=== PATIENT | female | born 1950 | race Caucasian/White ===

== ENCOUNTER 2019-04-10 10:54 | Emergency (ER) | payer OTHER, MEDICARE ==
[2019-04-10] MEDS ORDERED: Morphine 4 MG/ML Syringe IM ONE (11:08)
[2019-04-10] MEDS ORDERED: Ondansetron 4 MG Tab.DIS PO ONE (11:08)
--- NOTE | 2019-04-10 11:08 | EDM.PDOC ---
ED HPI GENERAL MEDICAL PROBLEM - General Chief Complaint: Chest Pain Stated Complaint: RIB INJURY Time Seen by Provider: 04/10/19 10:59 - History of Present Illness INITIAL COMMENTS - FREE TEXT/NARRATIVE: HISTORY AND PHYSICAL: History of present illness: Patient 60-year-old female presents status post right rib injury in which she states she was at work and the bike came down striking her right chest and falling subsequently hitting her right ribs into another box. She denies any other trauma or concern. Review of systems: As per history of present illness and below otherwise all systems reviewed and negative. Past medical history: As per history of present illness and as reviewed below otherwise noncontributory. Surgical history: As per history of present illness and as reviewed below otherwise noncontributory. Social history: No reported history of drug or alcohol abuse. Family history: As per history of present illness and as reviewed below otherwise noncontributory. Physical exam: HEENT: Atraumatic, normocephalic, pupils reactive, negative for conjunctival pallor or scleral icterus, mucous membranes moist, throat clear, neck supple, nontender, trachea midline. Lungs: Clear to auscultation, breath sounds equal bilaterally, chest tenderness in the right anterolateral axillary line over upper ribs with an ecchymotic area noted there is no crepitation.. Heart: S1S2, regular, negative for clicks, rubs, or JVD. Abdomen: Soft, nondistended, nontender. Negative for masses or hepatosplenomegaly. Negative for costovertebral tenderness. Pelvis: Stable nontender. Genitourinary: Deferred. Rectal: Deferred. Extremities: Atraumatic, negative for cords or calf pain. Neurovascular unremarkable. Neuro: Awake, alert, oriented. Cranial nerves II through XII unremarkable. Cerebellum unremarkable. Motor and sensory unremarkable throughout. Exam nonfocal. Diagnostics: X-ray right ribs with chest Therapeutics: Morphine sulfate 4 mg IM Zofran 4 mg by mouth Impression: #1 right rib injury Definitive disposition and diagnosis as appropriate pending reevaluation and review of above. - Related Data Allergies Allergy/AdvReac Type Severity Reaction Status Date / Time No Known Allergies Allergy Verified 04/10/19 11:08 Home Meds: Home Meds Acetaminophen 1 - 2 tab PO Q4H PRN 04/10/19 [History] Albuterol Sulfate [Albuterol Sulfate Hfa] 2 puff INH Q4H PRN 04/10/19 [History] Lisinopril 10 mg PO DAILY 04/10/19 [History] Mirtazapine 30 mg PO DAILY 04/10/19 [History] Naproxen Sodium [Aleve] 2 tab PO DAILY PRN 04/10/19 [History] Pantothenic Acid 500 mg PO DAILY 04/10/19 [History] diphenhydrAMINE [Benadryl] 25 mg PO DAILY 04/10/19 [History] ED ROS GENERAL - Review of Systems Review Of Systems: ROS reveals no pertinent complaints other than HPI. ED EXAM, GENERAL - Physical Exam Exam: See Below (dictation) Course - Vital Signs Last Recorded V/S: Last Vital Signs Temp 36.6 C 04/10/19 11:04 Pulse 95 04/10/19 11:04 Resp 20 04/10/19 11:04 BP 109/107 H 04/10/19 11:04 Pulse Ox 99 04/10/19 11:04 - Orders/Labs/Meds Meds: Medications Discontinued Medications Generic Name Dose Route Start Last Admin Trade Name Freq PRN Reason Stop Dose Admin Morphine Sulfate 4 mg 04/10/19 11:08 04/10/19 11:26 Morphine IM 04/10/19 11:09 Not Given ONETIME ONE Ondansetron HCl 4 mg 04/10/19 11:08 04/10/19 11:26 Zofran Odt PO 04/10/19 11:09 Not Given ONETIME ONE Departure - Departure Time of Disposition: 12:08 Disposition: Home, Self-Care 01 Condition: Good Clinical Impression: Rib fractures - Discharge Information Referrals: PCP,Unknown [Primary Care Provider] - Forms: ED Department Discharge Additional Instructions: The following information is given to patients seen in the emergency department who are being discharged to home. This information is to outline your options for follow-up care. We provide all patients seen in our emergency department with a follow-up referral. The need for follow-up, as well as the timing and circumstances, are variable depending upon the specifics of your emergency department visit. If you don't have a primary care physician on staff, we will provide you with a referral. We always advise you to contact your personal physician following an emergency department visit to inform them of the circumstance of the visit and for follow-up with them and/or the need for any referrals to a consulting specialist. The emergency department will also refer you to a specialist when appropriate. This referral assures that you have the opportunity for followup care with a specialist. All of these measure are taken in an effort to provide you with optimal care, which includes your followup. Under all circumstances we always encourage you to contact your private physician who remains a resource for coordinating your care. When calling for followup care, please make the office aware that this follow-up is from your recent emergency room visit. If for any reason you are refused follow-up, please contact the [facility] emergency department at and asked to speak to the emergency department charge nurse. Hydrocodone as prescribed since branches directed all for control released by occupational medicine/private medical doctor return as needed as discussed
--- NOTE | 2019-04-10 11:48 | CR ---
EXAMINATION: PA chest and right RIBS HISTORY: Pain. FINDINGS: The trachea is midline. The cardiomediastinal silhouette is within normal limits. No pulmonary infiltrates, effusions or pneumothorax. Left basilar atelectasis. Osseous structures appear osteopenic. There are a few nondisplaced right rib fractures noted. IMPRESSION: There are a few nondisplaced right lateral rib fractures noted without an underlying pneumothorax or pleural effusion.
== END 2019-04-10 12:50 | disposition home or self-care (01) ==
LOC: MW.ED 10:54
DX: S22.41XA Multiple fractures of ribs, right side, initial encounter for closed fracture (principal); Z79.899 Other long term (current) drug therapy; W22.8XXA Striking against or struck by other objects, initial encounter
CPT/HCPCS: 71101-26-RT; 71101-RT; 99283-25

== ENCOUNTER 2019-07-05 11:03 | Emergency (ER) | payer MEDICARE, OTHER ==
[2019-07-05] MEDS ORDERED: Sodium Chloride 0.9% 2.5 ML Syringe FLUSH PRN (11:04)
[2019-07-05] MEDS ORDERED: Sodium Chloride 0.9% 10 ML Syringe FLUSH PRN (11:04)
--- NOTE | 2019-07-05 11:16 | EDM.PDOC ---
ED HPI GENERAL MEDICAL PROBLEM - General Chief Complaint: Chest Pain Stated Complaint: CHEST PAIN, NUMBNESS IN LEGS Time Seen by Provider: 07/05/19 11:05 Source of Information: Reports: Patient History Limitations: Reports: No Limitations - History of Present Illness INITIAL COMMENTS - FREE TEXT/NARRATIVE: HISTORY AND PHYSICAL: History of present illness: Patient is a 69-year-old female presents to the ED today with concern of mid sternal chest pain, feeling short of breath, tingling in both hands and feet, and one episode of drooling out of the left side of her mouth just prior to arrival to the ED (started around 830am). Patient states she was at work when the symptoms came on suddenly when she was chopping fruit at work. Patient states while in the ED, the only sensation she still has his the midsternal chest pain (5/10) along with the feeling short of breath which she describes as feeling like she has pressure on her chest so cannot take a deep breath in. Patient states she has a history of hypertension but denies any other health history. Patient states she has not taken anything today for her symptoms. Patient denies fever, chills or cough. Denies headache, neck stiff ness, change in vision, syncope, or near syncope. Denies nausea, vomiting, abdominal pain, diarrhea, constipation, or dysuria. Has not noted any blood in urine or stool. Patient has been eating and drinking appropriately. Review of systems: As per history of present illness and below otherwise all systems reviewed and negative. Past medical history: As per history of present illness and as reviewed below otherwise noncontributory. Surgical history: As per history of present illness and as reviewed below otherwise noncontributory. Social history: See social history for further information Family history: As per history of present illness and as reviewed below otherwise noncontributory. Physical exam: General: Patient is alert, oriented, and in no acute distress. Patient sitting comfortably on exam table but does appear mildly anxious. HEENT: Atraumatic, normocephalic, pupils equal and reactive bilaterally, negative for conjunctival pallor or scleral icterus, mucous membranes moist, TMs normal bilaterally, throat clear, neck supple, nontender, trachea midline. No drooling or trismus noted. No meningeal signs. No hot potato voice noted. Lungs: Clear to auscultation, breath sounds equal bilaterally, chest nontender. Heart: S1S2, regular rate and rhythm without overt murmur Abdomen: Soft, nondistended, nontender. Negative for masses or hepatosplenomegaly. Negative for costovertebral tenderness. Pelvis: Stable nontender. Genitourinary: Deferred. Rectal: Deferred. Skin: Intact, warm, dry. No lesions or rashes noted. Extremities: Atraumatic, negative for cords or calf pain. Neurovascular unremarkable. Neuro: Awake, alert, oriented. Cranial nerves II through XII unremarkable. Cerebellum unremarkable. Motor and sensory unremarkable throughout. Exam nonfocal. Notes: Stroke Code was called upon arrival to the ED. Last known time well 830am. NIH score 0. GCS score 15. Patient BP now 148/[address] without therapeutics (before nitro given). Chest pain resolved throughout course in ED. Offered admission for observation but patient declines; discussed the risks versus benefits of discharge, patient expresses understanding and declined admission stating she'll return if she feels necessary. Voices understanding and is agreeable to plan of care. Denies any further questions or concerns at this time. Diagnostics: CBC, CMP, UA, EKG, troponin, chest x-ray one view, head CT, TSH, PT/INR, urine culture Therapeutics: ASA, Nitro, NS Prescription: None Impression: Chest pain, resolved Extremity paresthesia, resolved Plan: 1. You can alternate ibuprofen and Tylenol as directed for pain and discomfort. 2. Follow-up with a primary care provider as discussed. Return to the ED as needed and as discussed. Definitive disposition and diagnosis as appropriate pending reevaluation and review of above. chest Pain Score (Numeric/FACES): 7 - Related Data Allergies Allergy/AdvReac Type Severity Reaction Status Date / Time No Known Allergies Allergy Verified 04/10/19 11:08 Home Meds: Home Meds Acetaminophen 1 - 2 tab PO Q4H PRN 04/10/19 [History] Albuterol Sulfate [Albuterol Sulfate Hfa] 2 puff INH Q4H PRN 04/10/19 [History] Lisinopril 10 mg PO DAILY 04/10/19 [History] Mirtazapine 30 mg PO DAILY 04/10/19 [History] Naproxen Sodium [Aleve] 2 tab PO DAILY PRN 04/10/19 [History] Pantothenic Acid 500 mg PO DAILY 04/10/19 [History] diphenhydrAMINE [Benadryl] 25 mg PO DAILY 04/10/19 [History] Fluticasone Furoate [Arnuity Ellipta] 100 mcg PO BID 07/05/19 [History] Orphenadrine [Norflex] 100 mg PO BID PRN 07/05/19 [History] Past Medical History Cardiovascular History: Reports: Hypertension Respiratory History: Reports: Sleep Apnea [employer]ING [employer]ENT History: Reports: - Infectious Disease History Infectious Disease History: Reports: Measles Social & Family History - Family History Family Medical History: Noncontributory ED ROS GENERAL - Review of Systems Review Of Systems: ROS reveals no pertinent complaints other than HPI. ED EXAM, GENERAL - Physical Exam Exam: See Below (see dictation) Course - Vital Signs Last Recorded V/S: Last Vital Signs Temp 36.5 C 07/05/19 11:12 Pulse 79 07/05/19 12:38 Resp 14 07/05/19 12:38 BP 120/75 07/05/19 12:38 Pulse Ox 98 07/05/19 12:38 - Orders/Labs/Meds Orders: Active Orders 24 hr Category Date Time Status EKG Documentation Completion [RC] STAT Care 07/05/19 11:04 Active CULTURE URINE [RM] Stat Lab 07/05/19 12:10 Received UA W/MICROSCOPIC [URIN] Stat Lab 07/05/19 12:10 Results Nitroglycerin [Nitrostat] Med 07/05/19 11:37 Active 0.4 mg SL Q5M PRN Sodium Chloride 0.9% [Normal Saline] 1,000 ml Med 07/05/19 11:52 Active IV .Bolus Sodium Chloride 0.9% [Saline Flush] Med 07/05/19 11:04 Active 10 ml FLUSH ASDIRECTED PRN Sodium Chloride 0.9% [Saline Flush] Med 07/05/19 11:04 Active 2.5 ml FLUSH ASDIRECTED PRN Saline Lock Insert [OM.PC] Stat Oth 07/05/19 11:04 Ordered Medication Orders Sodium Chloride (Normal Saline) 1,000 mls @ 999 mls/hr IV .Bolus ONE Stop: 07/05/19 12:52 Last Admin: 07/05/19 11:53 Dose: 999 mls/hr Nitroglycerin (Nitrostat) 0.4 mg SL Q5M PRN PRN Reason: Chest Pain Last Admin: 07/05/19 11:55 Dose: 0.4 mg Sodium Chloride (Saline Flush) 10 ml FLUSH ASDIRECTED PRN PRN Reason: Keep Vein Open Sodium Chloride (Saline Flush) 2.5 ml FLUSH ASDIRECTED PRN PRN Reason: Keep Vein Open Labs: Laboratory Tests 07/05/19 07/05/19 07/05/19 Range/Units 11:10 11:10 11:10 WBC 8.11 (4.0-11.0) K/uL RBC 4.52 (4.30-5.90) M/uL Hgb 14.3 (12.0-16.0) g/dL Hct 42.4 (36.0-46.0) % MCV 93.8 (80.0-98.0) fL MCH 31.6 (27.0-32.0) pg MCHC 33.7 (31.0-37.0) g/dL RDW Std Deviation 45.7 (28.0-62.0) fl RDW Coeff of Alexa 13 (11.0-15.0) % Plt Count 266 (150-400) K/uL MPV 9.40 (7.40-12.00) fL Neut % (Auto) 55.3 (48.0-80.0) % Lymph % (Auto) 31.9 (16.0-40.0) % [place] % (Auto) 10.1 (0.0-15.0) % Eos % (Auto) 2.5 (0.0-7.0) % Baso % (Auto) 0.2 (0.0-1.5) % Neut # (Auto) 4.5 (1.4-5.7) K/uL Lymph # (Auto) 2.6 H (0.6-2.4) K/uL [place] # (Auto) 0.8 (0.0-0.8) K/uL Eos # (Auto) 0.2 (0.0-0.7) K/uL Baso # (Auto) 0.0 (0.0-0.1) K/uL Nucleated RBC % 0.0 /100WBC Nucleated RBCs # 0 K/uL INR 1.00 Sodium 138 (136-145) mmol/L Potassium 4.3 (3.5-5.1) mmol/L Chloride 104 (98-107) mmol/L Carbon Dioxide 22.4 (21.0-32.0) mmol/L BUN 27 H (7.0-18.0) mg/dL Creatinine 1.2 H (0.6-1.0) mg/dL Est Cr Clr Drug Dosing 46.24 mL/min Estimated GFR (MDRD) 44.5 ml/min Glucose 107 H (74-106) mg/dL Calcium 9.6 (8.5-10.1) mg/dL Total Bilirubin 0.3 (0.2-1.0) mg/dL AST 23 (15-37) IU/L ALT 38 (14-63) IU/L Alkaline Phosphatase 83 (46-116) U/L Troponin I < 0.050 (0.000-0.056) ng/mL Total Protein 7.6 (6.4-8.2) g/dL Albumin 4.4 (3.4-5.0) g/dL Globulin 3.2 (2.6-4.0) g/dL Albumin/Globulin Ratio 1.4 (0.9-1.6) TSH 3rd Generation 2.53 (0.36-3.74) uIU/mL Urine Color Urine Appearance Urine pH (5.0-8.0) Ur Specific [place] (1.001-1.035) Urine Protein (NEGATIVE) mg/dL Urine Glucose (UA) (NEGATIVE) mg/dL Urine Ketones (NEGATIVE) mg/dL Urine Occult Blood (NEGATIVE) Urine Nitrite (NEGATIVE) Urine Bilirubin (NEGATIVE) Urine Urobilinogen (<2.0) EU/dL Ur Leukocyte Esterase (NEGATIVE) 07/05/19 Range/Units 12:10 WBC (4.0-11.0) K/uL RBC (4.30-5.90) M/uL Hgb (12.0-16.0) g/dL Hct (36.0-46.0) % MCV (80.0-98.0) fL MCH (27.0-32.0) pg MCHC (31.0-37.0) g/dL RDW Std Deviation (28.0-62.0) fl RDW Coeff of Alexa (11.0-15.0) % Plt Count (150-400) K/uL MPV (7.40-12.00) fL Neut % (Auto) (48.0-80.0) % Lymph % (Auto) (16.0-40.0) % [place] % (Auto) (0.0-15.0) % Eos % (Auto) (0.0-7.0) % Baso % (Auto) (0.0-1.5) % Neut # (Auto) (1.4-5.7) K/uL Lymph # (Auto) (0.6-2.4) K/uL [place] # (Auto) (0.0-0.8) K/uL Eos # (Auto) (0.0-0.7) K/uL Baso # (Auto) (0.0-0.1) K/uL Nucleated RBC % /100WBC Nucleated RBCs # K/uL INR Sodium (136-145) mmol/L Potassium (3.5-5.1) mmol/L Chloride (98-107) mmol/L Carbon Dioxide (21.0-32.0) mmol/L BUN (7.0-18.0) mg/dL Creatinine (0.6-1.0) mg/dL Est Cr Clr Drug Dosing mL/min Estimated GFR (MDRD) ml/min Glucose (74-106) mg/dL Calcium (8.5-10.1) mg/dL Total Bilirubin (0.2-1.0) mg/dL AST (15-37) IU/L ALT (14-63) IU/L Alkaline Phosphatase (46-116) U/L Troponin I (0.000-0.056) ng/mL Total Protein (6.4-8.2) g/dL Albumin (3.4-5.0) g/dL Globulin (2.6-4.0) g/dL Albumin/Globulin Ratio (0.9-1.6) TSH 3rd Generation (0.36-3.74) uIU/mL Urine Color YELLOW Urine Appearance CLEAR Urine pH 5.5 (5.0-8.0) Ur Specific [place] 1.025 (1.001-1.035) Urine Protein NEGATIVE (NEGATIVE) mg/dL Urine Glucose (UA) NEGATIVE (NEGATIVE) mg/dL Urine Ketones NEGATIVE (NEGATIVE) mg/dL Urine Occult Blood NEGATIVE (NEGATIVE) Urine Nitrite NEGATIVE (NEGATIVE) Urine Bilirubin NEGATIVE (NEGATIVE) Urine Urobilinogen 0.2 (<2.0) EU/dL Ur Leukocyte Esterase TRACE H (NEGATIVE) Meds: Medications Generic Name Dose Route Start Last Admin Trade Name Freq PRN Reason Stop Dose Admin Sodium Chloride 1,000 mls @ 999 mls/hr 07/05/19 11:52 07/05/19 11:53 Normal Saline IV 07/05/19 12:52 999 mls/hr .Bolus ONE Administration Nitroglycerin 0.4 mg 07/05/19 11:37 07/05/19 11:55 Nitrostat SL 0.4 mg Q5M PRN Administration Chest Pain Sodium Chloride 10 ml 07/05/19 11:04 Saline Flush FLUSH ASDIRECTED PRN Keep Vein Open Sodium Chloride 2.5 ml 07/05/19 11:04 Saline Flush FLUSH ASDIRECTED PRN Keep Vein Open Discontinued Medications Generic Name Dose Route Start Last Admin Trade Name Freq PRN Reason Stop Dose Admin Aspirin 324 mg 07/05/19 11:36 07/05/19 11:51 Aspirin PO 07/05/19 11:37 324 mg ONETIME ONE Administration Departure - Departure Time of Disposition: 12:51 Disposition: Home, Self-Care 01 Clinical Impression: Paresthesia of lower extremity, Paresthesia of upper extremity Chest pain Qualifiers: Chest pain type: unspecified Qualified Code(s): R07.9 - Chest pain, unspecified - Discharge Information Referrals: PCP,Unknown [Primary Care Provider] - Forms: ED Department Discharge Additional Instructions: The following information is given to patients seen in the emergency department who are being discharged to home. This information is to outline your options for follow-up care. We provide all patients seen in our emergency department with a follow-up referral. The need for follow-up, as well as the timing and circumstances, are variable depending upon the specifics of your emergency department visit. If you don't have a primary care physician on staff, we will provide you with a referral. We always advise you to contact your personal physician following an emergency department visit to inform them of the circumstance of the visit and for follow-up with them and/or the need for any referrals to a consulting specialist. The emergency department will also refer you to a specialist when appropriate. This referral assures that you have the opportunity for follow-up care with a specialist. All of these measure are taken in an effort to provide you with optimal care, which includes your follow-up. Under all circumstances we always encourage you to contact your private physician who remains a resource for coordinating your care. When calling for follow-up care, please make the office aware that this follow-up is from your recent emergency room visit. If for any reason you are refused follow-up, please contact the [facility] Emergency Department at and asked to speak to the emergency department charge nurse. [facility] Primary Care [address] [place] [address] [facility] [address] [place] [id number] 1. You can alternate ibuprofen and Tylenol as directed for pain and discomfort. 2. Follow-up with a primary care provider as discussed. Return to the ED as needed and as discussed. - My Orders Last 24 Hours: My Active Orders 07/05/19 11:37 Nitroglycerin [Nitrostat] 0.4 mg SL Q5M PRN 07/05/19 11:52 Sodium Chloride 0.9% [Normal Saline] 1,000 ml IV .Bolus - Assessment/Plan Last 24 Hours: My Active Orders 07/05/19 11:37 Nitroglycerin [Nitrostat] 0.4 mg SL Q5M PRN 07/05/19 11:52 Sodium Chloride 0.9% [Normal Saline] 1,000 ml IV .Bolus
--- NOTE | 2019-07-05 11:33 | CT ---
INDICATION: Blurry vision. TECHNIQUE: CT of the head without contrast. Coronal and sagittal reformats are included. COMPARISON: None. FINDINGS: No acute intracranial hemorrhage or CT evidence of acute infarct. No mass effect or midline shift. Normal cerebral volume. No hydrocephalus or extra-axial collections. White matter within normal limits for age. No acute osseous findings. Mastoid bone and paranasal sinuses are clear. Normal soft tissues. IMPRESSION: 1. No acute intracranial abnormalities. Please note that all CT scans at this facility use dose modulation, iterative reconstruction, and/or weight-based dosing when appropriate to reduce radiation dose to as low as reasonably achievable. Dictated by Tres Mahoney MD @ Jul 05 2019 11:29AM Signed by Dr. Tres Mahoney @ Jul 05 2019 11:32AM
[2019-07-05] MEDS ORDERED: Aspirin 81 MG Tab.Chew PO ONE (11:36)
[2019-07-05] MEDS ORDERED: Nitroglycerin 0.4 MG Tab.SL SL PRN (11:37)
[2019-07-05 11:52] LABS: CHLORIDE,CL 104 mmol/L (98-107); SODIUM,NA 138 mmol/L (136-145)
[2019-07-05] MEDS ORDERED: Sodium Chloride 0.9% 1,000 ML IV ONE (11:52)
--- NOTE | 2019-07-05 12:14 | CR ---
INDICATION: Chest pain, shortness breath. COMPARISON: PA chest dated 06/20/2019 TECHNIQUE: Portable AP erect chest performed at 11:31 a.m. FINDINGS: The lungs are clear. There is no evidence of pneumothorax. The heart, mediastinum and pulmonary vessels are of normal size. There is no evidence of pleural fluid. IMPRESSION: Negative chest. Dictated by Sanjeev Mao MD @ Jul 05 2019 12:10PM Signed by Dr. Sanjeev Mao @ Jul 05 2019 12:13PM
== END 2019-07-05 13:05 | disposition home or self-care (01) ==
LOC: MW.ED 11:03
DX: R20.2 Paresthesia of skin (principal); R07.2 Precordial pain; I10 Essential (primary) hypertension; Z79.899 Other long term (current) drug therapy
CPT/HCPCS: 36415; 70450; 71045; 80053; 81001; 84443; 84484; 85025; 85610; 87086; 93005; 96360; 99285; A9270; J7040

== ENCOUNTER 2019-08-10 08:37 | Observation (INO) | payer MEDICARE ==
[2019-08-10] MEDS ORDERED: Sodium Chloride 0.9% 10 ML Syringe FLUSH PRN (08:47)
[2019-08-10] MEDS ORDERED: Sodium Chloride 0.9% 1,000 ML IV ONE ×2 (08:47→10:58)
[2019-08-10] MEDS ORDERED: Sodium Chloride 0.9% 2.5 ML Syringe FLUSH PRN (08:47)
[2019-08-10 09:19] LABS: BLOOD UREA NITROGEN,BUN 21 mg/dL (7.0-18.0); CARBON DIOXIDE,CO2 24.9 mmol/L (21.0-32.0); CHLORIDE,CL 104 mmol/L (98-107); GLUCOSE RANDOM 153 mg/dL (74-106); POTASSIUM,K 4.1 mmol/L (3.5-5.1); SODIUM,NA 140 mmol/L (136-145)
--- NOTE | 2019-08-10 09:55 | EDM.PDOC ---
ED HPI GENERAL MEDICAL PROBLEM - General Chief Complaint: Chest Pain Stated Complaint: SOB Time Seen by Provider: 08/10/19 08:41 Source of Information: Reports: Patient History Limitations: Reports: No Limitations - History of Present Illness INITIAL COMMENTS - FREE TEXT/NARRATIVE: History of present illness: []Patient awoke and ate her bran flakes for breakfast after taking isosorbide which is her only second dose of this medication and shortly had profuse nonbloody diarrhea. She subsequently had 4 more episodes of diarrhea after deciding while driving to work to just drive to Dr. Alarcon's office and be evaluated. Once at Dr. Alarcon's office she was sent to the emergency room. Review of systems: As per history of present illness and below otherwise all systems reviewed and negative. Past medical history: As per history of present illness and as reviewed below otherwise noncontributory. Surgical history: As per history of present illness and as reviewed below otherwise noncontributory. Social history: No reported history of drug or alcohol abuse. Family history: As per history of present illness and as reviewed below otherwise noncontributory. Physical exam: General: Well developed, well nourished in NAD HEENT: Atraumatic, normocephalic, pupils reactive, negative for conjunctival pallor or scleral icterus, mucous membranes moist, throat clear, neck supple, nontender, trachea midline. Lungs: Clear to auscultation, breath sounds equal bilaterally, chest nontender. Heart: S1S2, regular, negative for clicks, rubs, or JVD. No peripheral edema Abdomen: NABS, Soft, nondistended, nontender, no rebound or guarding. Negative for masses or hepatosplenomegaly. Negative for costovertebral tenderness. Pelvis: Stable nontender. Genitourinary: Deferred. Rectal: Deferred. Extremities: Atraumatic, negative for cords or calf pain. Neurovascular unremarkable. Neuro: Awake, alert, oriented. Cranial nerves II through XII unremarkable. Cerebellum unremarkable. Motor and sensory unremarkable throughout. Exam nonfocal. Skin:warm and dry Diagnostics: Chest x-ray, CBC, chemistry, troponin, BNP, UA, stool cultures and C. difficile Therapeutics: IV hydration, Zofran ED Course: Stable Impression: Diarrhea, chest pain Prescriptions: None Plan: Admit for IV hydration and further workup Definitive disposition and diagnosis as appropriate pending reevaluation and review of above. Mid-Sternal Chest Pain Score (Numeric/FACES): 8 - Related Data Allergies Allergy/AdvReac Type Severity Reaction Status Date / Time No Known Allergies Allergy Verified 08/10/19 08:44 Home Meds: Home Meds Acetaminophen 1 - 2 tab PO Q4H PRN 04/10/19 [History] Albuterol Sulfate [Albuterol Sulfate Hfa] 2 puff INH Q4H PRN 04/10/19 [History] Lisinopril 10 mg PO DAILY 04/10/19 [History] Mirtazapine 30 mg PO DAILY 04/10/19 [History] Naproxen Sodium [Aleve] 2 tab PO DAILY PRN 04/10/19 [History] Pantothenic Acid 500 mg PO DAILY 04/10/19 [History] diphenhydrAMINE [Benadryl] 25 mg PO DAILY 04/10/19 [History] Fluticasone Furoate [Arnuity Ellipta] 100 mcg PO BID 07/05/19 [History] Orphenadrine [Norflex] 100 mg PO BID PRN 07/05/19 [History] Past Medical History Cardiovascular History: Reports: Angina, Hypertension Respiratory History: Reports: Sleep Apnea [employer] History: Reports: - Infectious Disease History Infectious Disease History: Reports: Chicken Pox, Measles, Mumps Social & Family History - Family History Family Medical History: Noncontributory - Tobacco Use Smoking Status *Q: Never Smoker - Caffeine Use Caffeine Use: Reports: Coffee - Recreational Drug Use Recreational Drug Use: No ED ROS GENERAL - Review of Systems Review Of Systems: See Below ED EXAM, GENERAL - Physical Exam Exam: See Below Course - Vital Signs Last Recorded V/S: Last Vital Signs Temp 97.5 F 08/10/19 08:40 Pulse 67 08/10/19 10:58 Resp 18 08/10/19 10:58 BP 121/70 08/10/19 11:00 Pulse Ox 96 08/10/19 10:58 - Orders/Labs/Meds Orders: Active Orders 24 hr Category Date Time Status Cardiac Monitoring [RC] . DIRECTED Care 08/10/19 08:47 Active EKG Documentation Completion [RC] STAT Care 08/10/19 08:47 Active CULTURE STOOL + CAMPY+SHIGATOX [RM] Stat Lab 08/10/19 08:47 Results Sodium Chloride 0.9% [Saline Flush] Med 08/10/19 08:47 Active 10 ml FLUSH ASDIRECTED PRN Sodium Chloride 0.9% [Saline Flush] Med 08/10/19 08:47 Active 2.5 ml FLUSH ASDIRECTED PRN Isolation [COMM] Stat [facility] 08/10/19 09:04 Ordered Saline Lock Insert [OM.PC] Stat [facility] 08/10/19 08:46 Ordered Medication Orders Loperamide HCl (Imodium) 0 mg PO ASDIRECTED PRN PRN Reason: Diarrhea Sodium Chloride (Saline Flush) 10 ml FLUSH ASDIRECTED PRN PRN Reason: Keep Vein Open Sodium Chloride (Saline Flush) 2.5 ml FLUSH ASDIRECTED PRN PRN Reason: Keep Vein Open Labs: Laboratory Tests 08/10/19 08/10/19 08/10/19 Range/Units 08:39 08:39 08:39 WBC 5.51 (4.0-11.0) K/uL RBC 4.42 (4.30-5.90) M/uL Hgb 13.7 (12.0-16.0) g/dL Hct 41.5 (36.0-46.0) % MCV 93.9 (80.0-98.0) fL MCH 31.0 (27.0-32.0) pg MCHC 33.0 (31.0-37.0) g/dL RDW Std Deviation 44.9 (28.0-62.0) fl RDW Coeff of Alexa 13 (11.0-15.0) % Plt Count 248 (150-400) K/uL MPV 9.40 (7.40-12.00) fL Neut % (Auto) 51.3 (48.0-80.0) % Lymph % (Auto) 37.2 (16.0-40.0) % Power % (Auto) 9.3 (0.0-15.0) % Eos % (Auto) 1.8 (0.0-7.0) % Baso % (Auto) 0.4 (0.0-1.5) % Neut # (Auto) 2.8 (1.4-5.7) K/uL Lymph # (Auto) 2.1 (0.6-2.4) K/uL Power # (Auto) 0.5 (0.0-0.8) K/uL Eos # (Auto) 0.1 (0.0-0.7) K/uL Baso # (Auto) 0.0 (0.0-0.1) K/uL Nucleated RBC % 0.0 /100WBC Nucleated RBCs # 0 K/uL Sodium 140 (136-145) mmol/L Potassium 4.1 (3.5-5.1) mmol/L Chloride 104 (98-107) mmol/L Carbon Dioxide 24.9 (21.0-32.0) mmol/L BUN 21 H (7.0-18.0) mg/dL Creatinine 0.9 (0.6-1.0) mg/dL Est Cr Clr Drug Dosing 61.65 mL/min Estimated GFR (MDRD) > 60.0 ml/min Glucose 153 H (74-106) mg/dL Calcium 9.8 (8.5-10.1) mg/dL Total Bilirubin 0.3 (0.2-1.0) mg/dL AST 22 (15-37) IU/L ALT 41 (14-63) IU/L Alkaline Phosphatase 75 (46-116) U/L Troponin I < 0.050 (0.000-0.056) ng/mL B-Natriuretic Peptide 15 (<100) PG/ML Total Protein 6.9 (6.4-8.2) g/dL Albumin 3.8 (3.4-5.0) g/dL Globulin 3.1 (2.6-4.0) g/dL Albumin/Globulin Ratio 1.2 (0.9-1.6) Meds: Medications Generic Name Dose Route Start Last Admin Trade Name Freq PRN Reason Stop Dose Admin Loperamide HCl 0 mg 08/10/19 11:29 Imodium PO ASDIRECTED PRN Diarrhea Sodium Chloride 10 ml 08/10/19 08:47 Saline Flush FLUSH ASDIRECTED PRN Keep Vein Open Sodium Chloride 2.5 ml 08/10/19 08:47 Saline Flush FLUSH ASDIRECTED PRN Keep Vein Open Discontinued Medications Generic Name Dose Route Start Last Admin Trade Name Freq PRN Reason Stop Dose Admin Sodium Chloride 1,000 mls @ 999 mls/hr 08/10/19 08:47 08/10/19 09:05 Normal Saline IV 08/10/19 09:47 999 mls/hr .Bolus ONE Administration Sodium Chloride 1,000 mls @ 999 mls/hr 08/10/19 10:58 08/10/19 10:59 Normal Saline IV 08/10/19 11:58 999 mls/hr .BOLUS ONE Administration Nitroglycerin 0.4 mg 08/10/19 10:03 Nitrostat SL Q5M PRN Chest Pain Departure - Departure Time of Disposition: 12:02 Disposition: Refer to Observation Condition: Good Clinical Impression: Diarrhea Chest pain Qualifiers: Chest pain type: unspecified Qualified Code(s): R07.9 - Chest pain, unspecified - My Orders Last 24 Hours: My Active Orders 08/10/19 08:46 Saline Lock Insert [OM.PC] Stat 08/10/19 08:47 Cardiac Monitoring [RC] . DIRECTED EKG Documentation Completion [RC] STAT CULTURE STOOL + CAMPY+SHIGATOX [RM] Stat Sodium Chloride 0.9% [Saline Flush] 10 ml FLUSH ASDIRECTED PRN Sodium Chloride 0.9% [Saline Flush] 2.5 ml FLUSH ASDIRECTED PRN 08/10/19 09:04 Isolation [COMM] Stat - Assessment/Plan Last 24 Hours: My Active Orders 08/10/19 08:46 Saline Lock Insert [OM.PC] Stat 08/10/19 08:47 Cardiac Monitoring [RC] . DIRECTED EKG Documentation Completion [RC] STAT CULTURE STOOL + CAMPY+SHIGATOX [RM] Stat Sodium Chloride 0.9% [Saline Flush] 10 ml FLUSH ASDIRECTED PRN Sodium Chloride 0.9% [Saline Flush] 2.5 ml FLUSH ASDIRECTED PRN 08/10/19 09:04 Isolation [COMM] Stat
--- NOTE | 2019-08-10 09:56 | CR ---
INDICATION: Pain. TECHNIQUE: AP portable chest x-ray. Comparison Chest x-ray 07/05/2019. FINDINGS: Heart is upper limits of normal. Mild elevation eventration right hemidiaphragm. Postsurgical changes right shoulder stable. No focal infiltrate or consolidation in either lung. Small nodular opacity in the right lower lung stable and indeterminate. Comparison with older chest x-rays would be helpful in determining the if this is stable or not. Otherwise follow-up chest imaging could reassess. Remainder negative. Dictated by Edenilson Barth MD @ Aug 10 2019 9:54AM Signed by Dr. Edenilson Barth @ Aug 10 2019 9:55AM
[2019-08-10] MEDS ORDERED: Nitroglycerin 0.4 MG Tab.SL SL PRN (10:03)
[2019-08-10] MEDS ORDERED: Loperamide 2 MG Cap PO PRN (11:29)
--- NOTE | 2019-08-10 11:31 | PCM.HP.2 ---
H&P History of Present Illness - General Date of Service: 08/10/19 Admit Problem/Dx: Admission Diagnosis/Problem Admission Diagnosis/Problem Chest pain Source of Information: Patient History Limitations: Reports: No Limitations - History of Present Illness Initial Comments - Free Text/Narative: This 69 year old female with pmh of HTN presented to ED today with complaints of chest pressure, epigastric pain and diarrhea. She reports she was eating breakfast this morning and took her newly prescribed Isosorbide, day 2, and then suddenly had the urge to have a BM. She reports explosive diarrhea. This finished and she was finishing getting ready for work and had another diarrhea then had another 2 stools. She felt she was done. She then started in to work and was driving and started feeling diaphoretic, with chest pressure. She felt she was unable to take a deep breath. She turned around and came into Dr Alarcon' s clinic where she was directed to the ED. Prior to arriving in the ED, she had another 3 stools. Since arriving to the ED, she has had one stool. She continues to have some mild chest pressure. very vague, doesn't worsen with anything. Has history of some chest pressure with ambulation, this is why Isosorbide was started. ECHO obtained in the clinic a few weeks ago. She denies fevers, chills or acute illness recently. She reports very vague fatigue symptoms and leg cramps that have been bugging her since approximately March. 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 She denies tobacco use, no alcohol use and no recreational drug use. In the ED Labwork WNL. troponin negative. EKG SR with no acute ischemia noted. Stools negative for Cdiff and negative for campylobacter. CXR negative, small nodule noted in R lung base. VS stable. She will be admitted for chest pain rule out [place] and diarrhea. PCP, Dr Alarcon Mid-Sternal Chest Pain Score (Numeric/FACES): 8 - Related Data Allergies/Adverse Reactions: Allergies Allergy/AdvReac Type Severity Reaction Status Date / Time No Known Allergies Allergy Verified 08/10/19 08:44 Home Medications: Home Meds Acetaminophen 1 - 2 tab PO Q4H PRN 04/10/19 [History] Albuterol Sulfate [Albuterol Sulfate Hfa] 2 puff INH Q4H PRN 04/10/19 [History] Lisinopril 10 mg PO DAILY 04/10/19 [History] Mirtazapine 30 mg PO DAILY 04/10/19 [History] Naproxen Sodium [Aleve] 2 tab PO DAILY PRN 04/10/19 [History] Pantothenic Acid 500 mg PO DAILY 04/10/19 [History] diphenhydrAMINE [Benadryl] 25 mg PO DAILY 04/10/19 [History] Fluticasone Furoate [Arnuity Ellipta] 100 mcg PO BID 07/05/19 [History] Orphenadrine [Norflex] 100 mg PO BID PRN 07/05/19 [History] Past Medical History Cardiovascular History: Reports: Angina, Hypertension. Denies: Afib, Blood Clots/VTE/DVT Respiratory History: Reports: Sleep Apnea (uses bipap) Gastrointestinal History: Reports: None Genitourinary History: Reports: None. 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 Denies: CVA, TIA Psychiatric History: Reports: None Endocrine/Metabolic History: Reports: Obesity/BMI 30+. Denies: Diabetes, Type II, Hypothyroidism - Infectious Disease History Infectious Disease History: Reports: Chicken Pox, Measles, Mumps - Past Surgical History GI Surgical History: Reports: Other (See Below) (patric bragg) Female Surgical History: Reports: Hysterectomy, Tubal Ligation Musculoskeletal Surgical History: Reports: Shoulder Surgery (Right) Social & Family History - Family History Cardiac: Denies: CAD Endocrine/Metabolic: Denies: Diabetes, type II - Tobacco Use Smoking Status *Q: Never Smoker - Caffeine Use Caffeine Use: Reports: Coffee - Alcohol Use Alcohol Use History: No - Recreational Drug Use Recreational Drug Use: No - Living Situation & Occupation Living situation: Reports: Single Occupation: Employed (Works at [employer]) H&P Review of Systems - Review of Systems: Review Of Systems: See Below General: Reports: Malaise, Fatigue. Denies: Fever, Chills, Weakness HEENT: Reports: No Symptoms. Denies: Headaches, Sinus Congestion, Sore Throat Pulmonary: Reports: Shortness of Breath (fullness unable to take full breath). Denies: Wheezing, Cough, Sputum Cardiovascular: Reports: Chest Pain (pressure like to mid chest). Denies: Edema , Lightheadedness Gastrointestinal: Reports: Diarrhea (cramping with diarrhea, otherwise no pain) , Nausea. Denies: Abdominal Pain, Black Stool, Bloody Stool, Vomiting Genitourinary: Reports: No Symptoms. Denies: Dysuria, Frequency, Burning Musculoskeletal: Reports: No Symptoms Skin: Reports: No Symptoms Psychiatric: Reports: No Symptoms Neurological: Reports: No Symptoms Hematologic/Lymphatic: Reports: No Symptoms Immunologic: Reports: No Symptoms Exam - Exam Exam: See Below - Vital Signs Vital Signs: Last Vital Signs Temp 97.5 F 08/10/19 08:40 Pulse 67 08/10/19 10:58 Resp 18 08/10/19 10:58 BP 121/70 08/10/19 11:00 Pulse Ox 96 08/10/19 10:58 Weight: 99.79 kg - Exam General: Alert, Oriented, Cooperative HEENT: Conjunctiva Clear, Mucosa Moist & [place], Posterior Pharynx Clear Lungs: Clear to Auscultation, Normal Respiratory Effort Cardiovascular: Regular Rate, Regular Rhythm, Normal S1, Normal S2. No: Systolic Murmur GI/Abdominal Exam: Normal Bowel Sounds, Soft, Non-Tender. No: Distended, Guarding Extremities: Normal Inspection, Normal Range of Motion, Non-Tender, No Pedal Edema Neuro Extensive - Mental Status: Alert, Oriented x3 Neuro Extensive - Motor, Sensory, Reflexes: CN II-XII Intact, Normal Gait Psychiatric: Alert, Normal Mood, Anxious - Patient Data Lab Results Last 24 hrs: Laboratory Results - last 24 hr 08/10/19 08/10/19 08/10/19 Range/Units 08:39 08:39 08:39 WBC 5.51 (4.0-11.0) K/uL RBC 4.42 (4.30-5.90) M/uL Hgb 13.7 (12.0-16.0) g/dL Hct 41.5 (36.0-46.0) % MCV 93.9 (80.0-98.0) fL MCH 31.0 (27.0-32.0) pg MCHC 33.0 (31.0-37.0) g/dL RDW Std Deviation 44.9 (28.0-62.0) fl RDW Coeff of Alexa 13 (11.0-15.0) % Plt Count 248 (150-400) K/uL MPV 9.40 (7.40-12.00) fL Neut % (Auto) 51.3 (48.0-80.0) % Lymph % (Auto) 37.2 (16.0-40.0) % Angelina % (Auto) 9.3 (0.0-15.0) % Eos % (Auto) 1.8 (0.0-7.0) % Baso % (Auto) 0.4 (0.0-1.5) % Neut # (Auto) 2.8 (1.4-5.7) K/uL Lymph # (Auto) 2.1 (0.6-2.4) K/uL Angelina # (Auto) 0.5 (0.0-0.8) K/uL Eos # (Auto) 0.1 (0.0-0.7) K/uL Baso # (Auto) 0.0 (0.0-0.1) K/uL Nucleated RBC % 0.0 /100WBC Nucleated RBCs # 0 K/uL Sodium 140 (136-145) mmol/L Potassium 4.1 (3.5-5.1) mmol/L Chloride 104 (98-107) mmol/L Carbon Dioxide 24.9 (21.0-32.0) mmol/L BUN 21 H (7.0-18.0) mg/dL Creatinine 0.9 (0.6-1.0) mg/dL Est Cr Clr Drug Dosing 61.65 mL/min Estimated GFR (MDRD) > 60.0 ml/min Glucose 153 H (74-106) mg/dL Calcium 9.8 (8.5-10.1) mg/dL Total Bilirubin 0.3 (0.2-1.0) mg/dL AST 22 (15-37) IU/L ALT 41 (14-63) IU/L Alkaline Phosphatase 75 (46-116) U/L Troponin I < 0.050 (0.000-0.056) ng/mL B-Natriuretic Peptide 15 (<100) PG/ML Total Protein 6.9 (6.4-8.2) g/dL Albumin 3.8 (3.4-5.0) g/dL Globulin 3.1 (2.6-4.0) g/dL Albumin/Globulin Ratio 1.2 (0.9-1.6) Result Diagrams: 08/10/19 08:39 08/10/19 08:39 Serjio Results Last 24 hrs: Microbiology 08/10/19 08:47 Clostridium difficile Toxin A & B - Final Stool / Feces Negative for C.Diff Toxin/AG REFERENCE RANGE: NEGATIVE 08/10/19 08:47 Campylobacter Antigen Assay - Final Stool / Feces NEGATIVE CAMPYLOBACTER AG REFERENCE RANGE: NEGATIVE EKG INTERPRETATION EKG Date: 08/10/19 Rhythm: NSR P-Wave: Present QRS: Normal ST-T: Normal QT: Normal *Q Meaningful Use (ADM) - VTE Risk Assess *Q Each Risk Factor Represents 1 Point: None Total Score 1 Point Risk Factors: 0 Each Risk Factor Represents 2 Points: Age 60 - 74 Years Total Score 2 Point Risk Factors: 2 Each Risk Factor Represents 3 Points: None Total Score 3 Point Risk Factors: 0 Each Risk Factor Represents 5 Points: None Total Score 5 Point Risk Factors: 0 Venous Thromboembolism Risk Factor Score *Q: 2 - Problem List (1) Chest pain SNOMED Code(s): 24906309 ICD Code: R07.9 - CHEST PAIN, UNSPECIFIED Status: Acute Current Visit: No Qualifiers: Chest pain type: unspecified Qualified Code(s): R07.9 - Chest pain, unspecified (2) Diarrhea SNOMED Code(s): 62119429 ICD Code: R19.7 - DIARRHEA, UNSPECIFIED Status: Acute Current Visit: Yes (3) HTN (hypertension) SNOMED Code(s): 70902035 ICD Code: I10 - ESSENTIAL (PRIMARY) HYPERTENSION Status: Chronic Current Visit: Yes Problem List Initiated/Reviewed/Updated: Yes Orders Last 24hrs: Active Orders 24 hr Category Date Time Status Patient Status [ADT] Stat ADT 08/10/19 10:47 Active Cardiac Monitoring [RC] . DIRECTED Care 08/10/19 08:47 Active EKG Documentation Completion [RC] STAT Care 08/10/19 08:47 Active Telemetry Monitoring [Cardiac Monitoring] [RC] . Care 08/10/19 11:31 Ordered DIRECTED CULTURE STOOL + CAMPY+SHIGATOX [RM] Stat Lab 08/10/19 08:47 Results GLYCOSYLATED HEMOGLOBIN,HGBA1C [CHEM] Routine Lab 08/10/19 11:30 Ordered LIPID PANEL [CHEM] AM Lab 08/11/19 05:11 Ordered TROPONIN I [CHEM] Q6H Lab 08/10/19 14:30 Ordered TROPONIN I [CHEM] Q6H Lab 08/10/19 20:30 Ordered Loperamide [Imodium] Med 08/10/19 11:29 Ordered See Dose Instructions PO ASDIRECTED PRN Sodium Chloride 0.9% [Normal Saline] 1,000 ml Med 08/10/19 10:58 Active IV .BOLUS Sodium Chloride 0.9% [Saline Flush] Med 08/10/19 08:47 Active 10 ml FLUSH ASDIRECTED PRN Sodium Chloride 0.9% [Saline Flush] Med 08/10/19 08:47 Active 2.5 ml FLUSH ASDIRECTED PRN Isolation [COMM] Stat Ot 08/10/19 09:04 Ordered Saline Lock Insert [OM.PC] Stat Ot 08/10/19 08:46 Ordered Medication Orders Sodium Chloride (Normal Saline) 1,000 mls @ 999 mls/hr IV .BOLUS ONE Stop: 08/10/19 11:58 Last Admin: 08/10/19 10:59 Dose: 999 mls/hr Loperamide HCl (Imodium) 0 mg PO ASDIRECTED PRN PRN Reason: Diarrhea Sodium Chloride (Saline Flush) 10 ml FLUSH ASDIRECTED PRN PRN Reason: Keep Vein Open Sodium Chloride (Saline Flush) 2.5 ml FLUSH ASDIRECTED PRN PRN Reason: Keep Vein Open Assessment/Plan Comment:: This 69 year old female admitted with chest pain and diarrhea 1. Chest pain: R/O [place]. Will monitor on telemetry. Give ASA. currently pressure is nearly gone. Will trend troponins. Obtain A1c and lipid panel. Will set up for outpatient stress test 2. Diarrhea: Stools negative for bacteria currently. Will give Imodium. Monitor. Give 1 L NS due to high amount of diarrhea in short period of time. 3. HTN: Stable. Continue Lisinopril in AM. VTE prophylaxis: SCDs Dispo: 1 day. - Mortality Measure Prognosis:: Good
[2019-08-10] MEDS ORDERED: Acetaminophen 325 MG Tab PO PRN (12:17)
[2019-08-10] MEDS ORDERED: Ondansetron 4 MG/2 ML SDV IVPUSH PRN (12:17)
[2019-08-10] MEDS ORDERED: Sodium Chloride 0.9% 1,000 ML IV SCH (12:30)
[2019-08-10] MEDS ORDERED: Pantoprazole 40 MG in Sodium Chloride 0.9% 10 ML IV ONE (13:05)
[2019-08-10] MEDS: Aspirin 81 MG Tab.Chew PO SCH (13:13)
[2019-08-10 15:00] LABS: HEMOGLOBIN A1C 5.6 % (4.5-6.2)
[2019-08-10] MEDS: Betamethasone Dipropionate/Clotrimazole 0.05-1% Crm 15 GM Tube TOP SCH ×2 (15:37→20:54)
[2019-08-10] MEDS ORDERED: Lisinopril 10 MG Tab PO SCH ×2 (21:30→23:15)
[2019-08-11 08:30] LABS: BLOOD UREA NITROGEN,BUN 14 mg/dL (7.0-18.0); CARBON DIOXIDE,CO2 23.7 mmol/L (21.0-32.0); CHLORIDE,CL 109 mmol/L (98-107); GLUCOSE RANDOM 111 mg/dL (74-106); POTASSIUM,K 4.5 mmol/L (3.5-5.1); SODIUM,NA 143 mmol/L (136-145)
[2019-08-11] MEDS: Betamethasone Dipropionate/Clotrimazole 0.05-1% Crm 15 GM Tube TOP SCH (08:33)
[2019-08-11] MEDS: Aspirin 81 MG Tab.Chew PO SCH (08:33)
--- NOTE | 2019-08-11 11:32 | PCM.DCSUM1 ---
Discharge Summary - Hospital Course Brief History: This 69 year old female with pmh of HTN presented to ED today with complaints of chest pressure, epigastric pain and diarrhea. She reports she was eating breakfast this morning and took her newly prescribed Isosorbide, day 2, and then suddenly had the urge to have a BM. She reports explosive diarrhea. This finished and she was finishing getting ready for work and had another diarrhea then had another 2 stools. She felt she was done. She then started in to work and was driving and started feeling diaphoretic, with chest pressure. She felt she was unable to take a deep breath. She turned around and came into Dr Alarcon's clinic where she was directed to the ED. Prior to arriving in the ED, she had another 3 stools. Since arriving to the ED, she has had one stool. She continues to have some mild chest pressure. very vague, doesn't worsen with anything. Has history of some chest pressure with ambulation, this is why Isosorbide was started. ECHO obtained in the clinic a few weeks ago. She denies fevers, chills or acute illness recently. She reports very vague fatigue symptoms and leg cramps that have been bugging her since approximately March. 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 She denies tobacco use, no alcohol use and no recreational drug use. In the ED Labwork WNL. troponin negative. EKG SR with no acute ischemia noted. Stools negative for Cdiff and negative for campylobacter. CXR negative, small nodule noted in R lung base. VS stable. She will be admitted for chest pain rule out CT and diarrhea. PCP, Dr Alarcon Diagnosis: Stroke: No - Discharge Data Discharge Date: 08/11/19 Discharge Disposition: Home, Self-Care 01 Condition: Stable - Referral to Home Health Primary Care Physician: Merrick Alarcon MD - Discharge Diagnosis/Problem(s) (1) Chest pain SNOMED Code(s): 15901681 ICD Code: R07.9 - CHEST PAIN, UNSPECIFIED Status: Acute Current Visit: No Qualifiers: Chest pain type: unspecified Qualified Code(s): R07.9 - Chest pain, unspecified (2) Diarrhea SNOMED Code(s): 92724437 ICD Code: R19.7 - DIARRHEA, UNSPECIFIED Status: Acute Current Visit: Yes (3) HTN (hypertension) SNOMED Code(s): 15961209 ICD Code: I10 - ESSENTIAL (PRIMARY) HYPERTENSION Status: Chronic Current Visit: Yes - Patient Instructions Diet: Heart Healthy Diet, GI Soft/Low Residue/Low Fiber Activity: As Tolerated Showering/Bathing: May Shower Notify Provider of: Fever, Increased Pain, Swelling and Redness, Drainage, Nausea and/or Vomiting - Discharge Plan *PRESCRIPTION DRUG MONITORING PROGRAM REVIEWED*: Not Applicable *COPY OF PRESCRIPTION DRUG MONITORING REPORT IN PATIENT LATA: Not Applicable Prescriptions/Med Rec: Omeprazole Magnesium [Prilosec Otc] 20 mg PO DAILY #30 tablet. Phenylephrine HCl/[place] Butter [Preparation H Suppository] 1 each QID PRN #1 box PRN Reason: Hemorrhoids Home Medications: Home Meds Albuterol Sulfate [Albuterol Sulfate Hfa] 2 puff INH Q4H PRN 04/10/19 [History] Lisinopril 10 mg PO DAILY 04/10/19 [History] Mirtazapine 30 mg PO BEDTIME 04/10/19 [History] Betamethasone/Clotrimazole [Lotrisone] 1 gm TOP BID tube 08/11/19 [Rx] Isosorbide Mononitrate [Isosorbide Mononitrate ER] 15 mg PO DAILY #0 08/11/19 [ Rx] Omeprazole Magnesium [Prilosec Otc] 20 mg PO DAILY #30 tablet. 08/11/19 [Rx] Phenylephrine HCl/[place] Butter [Preparation H Suppository] 1 each QID PRN #1 box 08/11/19 [Rx] Oxygen Therapy Mode: Room Air Patient Handouts: Nonspecific Chest Pain, [id number], Phenylephrine rectal suppository, Diarrhea, Adult, [id number], Hypertension, Omeprazole tablets ( OTC) Referrals: [facility] [Outside] Randi Ovalle MD [Physician] - 08/16/19 9:30 am Merrick Alarcon MD [Primary Care Provider] - 08/18/19 8:00 am - Discharge Summary/Plan Comment DC Time >30 min.: No Discharge Summary/Plan Comment: Admitting Diagnoses Chest pain Diarrhea Discharge Diagnoses: Chest pain-resolved Diarrhea-resolved Hemorrhoids Other pMH HTN Gisele was admitted for mild dehydration, diarrhea and chest pain. Troponins were trended and were negative. No events on telemetry. Diarrhea has improved and she is eating well. She noted some small amount of rectal bleeding late evening. Rectal exam reveals hemorrhoids. She denies rectal pain. Hgb stable at 12.6. She is eager to go home. She is anxious regarding health. I recommended if she is nervous about working in an area that smells of sewer and cutter finger buff material, she needs to remove herself from that area. I will arrange for outpatient stress test and follow up with PCP. I will also arrange follow up with General surgery for colonoscopy as well. She is to return to ED or clinic if concerns should arise. Spoke with Dr Alarcon regarding Imdur. Will instruct her to cut tab in half and try lower dose and then follow up with him regarding this. - General Info Date of Service: 08/11/19 Admission Dx/Problem (Free Text: Admission Diagnosis/Problem Admission Diagnosis/Problem Chest pain/diarrhea Subjective Update: Doing well this morning. Anxious about health. Scant bleeding from hemorrhoids. No chest pain. No SOB. Functional Status: Reports: Pain Controlled, Tolerating Diet, Ambulating, Urinating - Review of Systems General: Reports: No Symptoms. Denies: Weakness, Fatigue HEENT: Reports: No Symptoms. Denies: Headaches, Sore Throat, Visual Changes Pulmonary: Reports: No Symptoms. Denies: Shortness of Breath Cardiovascular: Reports: No Symptoms. Denies: Chest Pain Gastrointestinal: Reports: Other (scant bleeding from hemorrhoids) Genitourinary: Reports: No Symptoms. Denies: Dysuria, Frequency, Burning Musculoskeletal: Reports: No Symptoms Skin: Reports: No Symptoms Neurological: Reports: No Symptoms Psychiatric: Reports: No Symptoms - Patient Data Vitals - Most Recent: Last Vital Signs Temp 97.7 F 08/11/19 07:36 Pulse 75 08/11/19 07:36 Resp 20 08/11/19 07:36 BP 146/74 H 08/11/19 07:36 Pulse Ox 96 08/11/19 07:36 Weight - Most Recent: 104.145 kg I&O - Last 24 hours: Intake & Output 08/10/19 08/11/19 08/11/19 22:59 06:59 14:59 Intake Total 1289 720 Output Total 400 1700 Balance 889 -980 Lab Results - Last 24 hrs: Laboratory Results - last 24 hr 08/10/19 08/10/19 08/10/19 Range/Units 08:39 14:33 20:22 WBC (4.0-11.0) K/uL RBC (4.30-5.90) M/uL Hgb (12.0-16.0) g/dL Hct (36.0-46.0) % MCV (80.0-98.0) fL MCH (27.0-32.0) pg MCHC (31.0-37.0) g/dL RDW Std Deviation (28.0-62.0) fl RDW Coeff of Alexa (11.0-15.0) % Plt Count (150-400) K/uL MPV (7.40-12.00) fL Neut % (Auto) (48.0-80.0) % Lymph % (Auto) (16.0-40.0) % [place] % (Auto) (0.0-15.0) % Eos % (Auto) (0.0-7.0) % Baso % (Auto) (0.0-1.5) % Neut # (Auto) (1.4-5.7) K/uL Lymph # (Auto) (0.6-2.4) K/uL [place] # (Auto) (0.0-0.8) K/uL Eos # (Auto) (0.0-0.7) K/uL Baso # (Auto) (0.0-0.1) K/uL Sodium (136-145) mmol/L Potassium (3.5-5.1) mmol/L Chloride (98-107) mmol/L Carbon Dioxide (21.0-32.0) mmol/L BUN (7.0-18.0) mg/dL Creatinine (0.6-1.0) mg/dL Est Cr Clr Drug Dosing mL/min Estimated GFR (MDRD) ml/min Glucose (74-106) mg/dL Hemoglobin A1c 5.6 (4.5-6.2) % Calcium (8.5-10.1) mg/dL Troponin I < 0.050 < 0.050 (0.000-0.056) ng/mL Triglycerides (0-200) mg/dL Cholesterol (50-200) mg/dL LDL Cholesterol, Calc (60-180) mg/dL VLDL Cholesterol (5-55) mg/dL HDL Cholesterol (40-60) mg/dL Cholesterol/HDL Ratio (3.3-6.0) 08/11/19 08/11/19 08/11/19 Range/Units 06:05 06:05 06:05 WBC 8.16 (4.0-11.0) K/uL RBC 3.99 L (4.30-5.90) M/uL Hgb 12.6 (12.0-16.0) g/dL Hct 37.7 (36.0-46.0) % MCV 94.5 (80.0-98.0) fL MCH 31.6 (27.0-32.0) pg MCHC 33.4 (31.0-37.0) g/dL RDW Std Deviation 42.6 (28.0-62.0) fl RDW Coeff of Alexa 13 (11.0-15.0) % Plt Count 219 (150-400) K/uL MPV 9.60 (7.40-12.00) fL Neut % (Auto) 69.2 (48.0-80.0) % Lymph % (Auto) 19.4 (16.0-40.0) % [place] % (Auto) 9.7 (0.0-15.0) % Eos % (Auto) 1.5 (0.0-7.0) % Baso % (Auto) 0.2 (0.0-1.5) % Neut # (Auto) 5.7 (1.4-5.7) K/uL Lymph # (Auto) 1.6 (0.6-2.4) K/uL [place] # (Auto) 0.8 (0.0-0.8) K/uL Eos # (Auto) 0.1 (0.0-0.7) K/uL Baso # (Auto) 0.0 (0.0-0.1) K/uL Sodium 143 (136-145) mmol/L Potassium 4.5 (3.5-5.1) mmol/L Chloride 109 H (98-107) mmol/L Carbon Dioxide 23.7 (21.0-32.0) mmol/L BUN 14 (7.0-18.0) mg/dL Creatinine 0.8 (0.6-1.0) mg/dL Est Cr Clr Drug Dosing 69.36 mL/min Estimated GFR (MDRD) > 60.0 ml/min Glucose 111 H (74-106) mg/dL Hemoglobin A1c (4.5-6.2) % Calcium 8.4 L (8.5-10.1) mg/dL Troponin I (0.000-0.056) ng/mL Triglycerides 127 (0-200) mg/dL Cholesterol 171 (50-200) mg/dL LDL Cholesterol, Calc 104 (60-180) mg/dL VLDL Cholesterol 25 (5-55) mg/dL HDL Cholesterol 42 (40-60) mg/dL Cholesterol/HDL Ratio 4.1 (3.3-6.0) [place] Results - Last 24 hrs: Microbiology 08/10/19 08:47 Campylobacter Antigen Assay - Final Stool / Feces NEGATIVE CAMPYLOBACTER AG REFERENCE RANGE: NEGATIVE Shiga Toxin I - Final NEGATIVE FOR SHIGA TOXIN 1 REFERENCE RANGE: NEGATIVE Shiga Toxin II - Final NEGATIVE FOR SHIGA TOXIN 2 REFERENCE RANGE: NEGATIVE 08/10/19 20:00 Stool Occult Blood ([place]) - Final Stool / Feces POSITIVE OCCULT BLOOD REFERENCE RANGE: NEGATIVE 08/10/19 08:47 Clostridium difficile Toxin A & B - Final Stool / Feces Negative for C.Diff Toxin/AG REFERENCE RANGE: NEGATIVE Med Orders - Current: Current Medications Acetaminophen (Tylenol) 650 mg PO Q4H PRN PRN Reason: Pain (Mild 1-3)/fever Last Admin: 08/11/19 00:07 Dose: 650 mg Aspirin (Aspirin) 81 mg PO DAILY [facility] Last Admin: 08/11/19 08:33 Dose: 81 mg Betamethasone/Clotrimazole (Lotrisone) 1 gm TOP BID [facility] Last Admin: 08/11/19 08:33 Dose: 1 applic Lisinopril (Prinivil) 10 mg PO BEDTIME [facility] Last Admin: 08/11/19 00:00 Dose: 10 mg Loperamide HCl (Imodium) 0 mg PO ASDIRECTED PRN PRN Reason: Diarrhea Ondansetron HCl (Zofran) 4 mg IVPUSH Q4H PRN PRN Reason: Nausea Sodium Chloride (Saline Flush) 10 ml FLUSH ASDIRECTED PRN PRN Reason: Keep Vein Open Sodium Chloride (Saline Flush) 2.5 ml FLUSH ASDIRECTED PRN PRN Reason: Keep Vein Open Discontinued Medications Sodium Chloride (Normal Saline) 1,000 mls @ 999 mls/hr IV .Bolus ONE Stop: 08/10/19 09:47 Last Admin: 08/10/19 09:05 Dose: 999 mls/hr Sodium Chloride (Normal Saline) 1,000 mls @ 999 mls/hr IV .BOLUS ONE Stop: 08/10/19 11:58 Last Admin: 08/10/19 10:59 Dose: 999 mls/hr Sodium Chloride (Normal Saline) 1,000 mls @ 125 mls/hr IV ASDIRECTED TEJ Stop: 08/10/19 20:29 Last Admin: 08/10/19 13:13 Dose: 125 mls/hr Pantoprazole Sodium 40 mg/ (Sodium Chloride) 10 mls @ 300 mls/hr IV NOW ONE Stop: 08/10/19 13:06 Last Admin: 08/10/19 13:13 Dose: 300 mls/hr Lisinopril (Prinivil) 10 mg PO DAILY TEJ Lisinopril (Prinivil) 10 mg PO BEDTIME TEJ Nitroglycerin (Nitrostat) 0.4 mg SL Q5M PRN PRN Reason: Chest Pain - Exam General: Reports: Alert, Oriented, Cooperative, No Acute Distress Neck: Reports: Supple Lungs: Reports: Clear to Auscultation, Normal Respiratory Effort Cardiovascular: Reports: Regular Rate, Regular Rhythm GI/Abdominal Exam: Normal Bowel Sounds, Soft, Non-Tender, Other Rectal (Female) Exam: Normal Rectal Tone, Heme + Stool, Hemorrhoids Extremities: Normal Inspection, Normal Range of Motion, Non-Tender, No Pedal Edema Wound/Incisions: Reports: Healing Well Neurological: Reports: No New Focal Deficit Psy/Mental Status: Reports: Alert, Normal Affect, Normal Mood
[2019-08-11] MEDS ORDERED: Lisinopril 10 MG Tab PO SCH (21:00)
== END 2019-08-11 13:20 | disposition home or self-care (01) ==
LOC: MW.ED 08:37 → MW.MS 10:47
PROVIDERS: ADMIT Internal Medicine; ATTEND Internal Medicine
DX: R07.9 Chest pain, unspecified (principal); R10.13 Epigastric pain; R19.7 Diarrhea, unspecified; I10 Essential (primary) hypertension; K64.9 Unspecified hemorrhoids; G47.33 Obstructive sleep apnea (adult) (pediatric); E66.9 Obesity, unspecified; Z79.899 Other long term (current) drug therapy; Z68.33 Body mass index [BMI] 33.0-33.9, adult
CPT/HCPCS: 36415; 71045; 80048; 80053; 80061; 82272; 83036; 83880; 84484; 85025; 87046; 87324; 87899; 93005; 96361; 96374; 99285; A9270; C9113; G0378; J7040; J7050; 96360

== ENCOUNTER 2019-09-14 09:22 | Day surgery (SDC) | payer MEDICARE ==
[~2019-09-14 09:22] MED LIST: Lactated Ringers 1,000 ML IV SCH; Sodium Chloride 0.9% 10 ML SDV IV PRN; Sodium Chloride 0.9% 10 ML Syringe FLUSH PRN; Sodium Chloride 0.9% 2.5 ML Syringe FLUSH PRN
[2019-09-14] MEDS ORDERED: Propofol 200 MG/20 ML SDV ONE ×2 (09:25→10:46)
--- NOTE | 2019-09-14 10:25 | PCM.PREANE ---
Preanesthetic Assessment - Anesthesia/Transfusion/Family Hx Anesthesia History: Prior Anesthesia Without Reaction Family History of Anesthesia Reaction: No Transfusion History: Prior Transfusion Without Reaction Intubation History: Unknown - Review of Systems General: No Symptoms Pulmonary: No Symptoms Cardiovascular: No Symptoms Gastrointestinal: Other (screening colonoscopy) Neurological: No Symptoms Other: Reports: None - Physical Assessment Vital Signs: Last Vital Signs Temp 36.4 C 09/14/19 09:57 Pulse 85 09/14/19 09:57 Resp 16 09/14/19 09:57 BP 135/67 09/14/19 09:57 Pulse Ox 95 09/14/19 09:57 Height: 5 ft 10 in Weight: 104.78 kg ASA Class: 3 Mental Status: Alert & Oriented x3 Airway Class: Mallampati = 2 Dentition: Reports: Normal Dentition, [place](s) (gold crowns x2 lower (back)) Thyro-Mental Finger Breadths: 3 Mouth Opening Finger Breadths: 3 ROM/Head Extension: Full Lungs: Clear to Auscultation, Normal Respiratory Effort Cardiovascular: Regular Rate, Regular Rhythm - Allergies Allergies/Adverse Reactions: Allergies Allergy/AdvReac Type Severity Reaction Status Date / Time No Known Allergies Allergy Verified 08/10/19 13:43 - Blood Blood Available: No - Anesthesia Plan Pre-Op Medication Ordered: None - Acknowledgements Anesthesia Type Planned: MAC Pt an Appropriate Candidate for the Planned Anesthesia: Yes Alternatives and Risks of Anesthesia Discussed w Pt/Guardian: Yes Pt/Guardian Understands and Agrees with Anesthesia Plan: Yes PreAnesthesia Questionnaire HEENT History: Reports: Impaired Vision Other HEENT History: wears contacts Cardiovascular History: Reports: Angina, Hypertension Other Cardiovascular History: stress test 2 weeks ago normal Respiratory History: Reports: Pneumonia, Recurrent, Sleep Apnea Other Respiratory History: recurrent pneumonia as a child, recent multiple rib fxs (heavy box fell on her), use BIPAP Gastrointestinal History: Reports: None Other Gastrointestinal History: "growly stomach" Genitourinary History: Reports: None BEHAVIORAL HEALTH TECH History: Reports: Musculoskeletal History: Reports: Fracture, Other (See Below) Other Musculoskeletal History: 2 right rib fractures Neurological History: Reports: Concussion Psychiatric History: Reports: Anxiety Endocrine/Metabolic History: Reports: Obesity/BMI 30+ Hematologic History: Reports: Blood Transfusion(s) Immunologic History: Reports: None Oncologic (Cancer) History: Reports: None Dermatologic History: Reports: None - Infectious Disease History Infectious Disease History: Reports: Chicken Pox, Measles, Mumps - Past Surgical History HEENT Surgical History: Reports: Other (See Below) GI Surgical History: Reports: Other (See Below) (paniculectomy) Female Surgical History: Reports: Hysterectomy, Tubal Ligation Musculoskeletal Surgical History: Reports: Shoulder Surgery - SUBSTANCE USE Smoking Status *Q: Never Smoker - HOME MEDS Home Medications: Home Meds Albuterol Sulfate [Albuterol Sulfate Hfa] 2 puff INH Q4H PRN 04/10/19 [History] Lisinopril 10 mg PO DAILY 04/10/19 [History] Mirtazapine 30 mg PO BEDTIME 04/10/19 [History] Aspirin [Low Dose Aspirin EC] 81 mg PO DAILY 09/06/19 [History] Isosorbide Mononitrate [Isosorbide Mononitrate ER] 30 mg PO DAILY 09/06/19 [ History] Magnesium Oxide 2 tab.chew CHEW DAILY 09/06/19 [History] - CURRENT (IN HOUSE) MEDS Current Meds: Current Medications Lactated Ringer's (Ringers, Lactated) 1,000 mls @ 125 mls/hr IV ASDIRECTED TEJ Sodium Chloride (Saline Flush) 10 ml FLUSH ASDIRECTED PRN PRN Reason: Keep Vein Open Sodium Chloride (Saline Flush) 2.5 ml FLUSH ASDIRECTED PRN PRN Reason: Keep Vein Open Sodium Chloride (Saline Flush) 10 ml FLUSH ASDIRECTED PRN PRN Reason: Keep Vein Open Sodium Chloride (Saline Flush) 2.5 ml FLUSH ASDIRECTED PRN PRN Reason: Keep Vein Open Sodium Chloride (Normal Saline) 10 ml IV ASDIRECTED PRN PRN Reason: IV Use Discontinued Medications Propofol (Diprivan 20 Ml) Confirm Administered Dose 400 mg .ROUTE .STK-MED ONE Stop: 09/14/19 09:26
--- NOTE | 2019-09-14 11:22 | PCM.POSTAN ---
POST ANESTHESIA ASSESSMENT - MENTAL STATUS Mental Status: Alert, Oriented - VITAL SIGNS Vital Signs: Last Vital Signs Temp 36.4 C 09/14/19 09:57 Pulse 66 09/14/19 11:18 Resp 13 09/14/19 11:18 BP 148/95 H 09/14/19 11:18 Pulse Ox 96 09/14/19 11:18 - RESPIRATORY Respiratory Status: Respiratory Rate WNL, Airway Patent, O2 Saturation Stable - CARDIOVASCULAR CV Status: Pulse Rate WNL, Blood Pressure Stable - GASTROINTESTINAL GI Status: No Symptoms - PAIN Pain Score: 0 - POST OP HYDRATION Hydration Status: Adequate & Stable - OBSERVATIONS Free Text/Narrative:: no anesthesia problems
--- NOTE | 2019-09-14 12:02 | PCM48HPAN ---
Post Anesthesia Note - EVALUATION WITHIN 48HRS OF ANESTHETIC Vital Signs in Normal Range: Yes Patient Participated in Evaluation: Yes Respiratory Function Stable: Yes Airway Patent: Yes Cardiovascular Function Stable: Yes Hydration Status Stable: Yes Pain Control Satisfactory: Yes Nausea and Vomiting Control Satisfactory: Yes Mental Status Recovered: Yes Vital Signs: Last Vital Signs Temp 36.3 C 09/14/19 11:27 Pulse 73 09/14/19 11:27 Resp 16 09/14/19 11:27 BP 169/79 H 09/14/19 11:27 Pulse Ox 98 09/14/19 11:27 - COMMENTS/OBSERVATIONS Free Text/Narrative:: no anesthesia problems
--- NOTE | 2019-09-14 13:04 | PCM.OPNOTE ---
- General Post-Op/Procedure Note Date of Surgery/Procedure: 09/14/19 Operative Procedure(s): Colonoscopy Findings: Incomplete colonoscopy. Diverticulosis and tight corner at 40 cm. Grade IV hemorrhoids Pre Op Diagnosis: Change in bowel habits Post-Op Diagnosis: Diverticulosis, grade IV hemorrhoids Anesthesia Technique: MAC Primary Surgeon: Randi Ovalle Condition: Good
--- NOTE | 2019-09-14 15:08 | OR ---
SURGEON: RANDI OVALLE MD DATE OF PROCEDURE: 09/14/2019 PREOPERATIVE DIAGNOSIS: Change in bowel habits. POSTOPERATIVE DIAGNOSES: 1. Diverticulosis. 2. Grade 4 hemorrhoids. PROCEDURE PERFORMED: Colonoscopy, incomplete. PRIMARY SURGEON: Randi Ovalle MD. ANESTHESIA: MAC. INSTRUMENT USED: Olympus colonoscope. EXTENT OF EXAM: To 40 cm in the colon. PREPARATION: Good. LIMITATIONS: Unable to pass scope past 40 cm. INDICATIONS: The patient is a 69-year-old female who presented with an acute change in her bowel habits. She attributed this to starting a new medication. She has since been taken off that medication and her bowel habits have returned to normal, but she has never had a colonoscopy. The patient and I discussed the need for this test. I explained the procedure, expected perioperative course, and risks including bleeding, infection, or damage to surrounding structures including perforation. The patient verbalized understanding and wishes to proceed. PROCEDURE IN DETAIL: The patient was brought into the endoscopy suite and placed in the left lateral decubitus position. A time-out was completed verifying the patient's name, age, date of , allergies, and procedure to be performed. Monitored anesthesia care was induced and continuous oxygen was provided via nasal cannula throughout the procedure. After adequate sedation was achieved, a digital rectal exam was performed. This exam revealed grade 4 hemorrhoids. A well-lubricated colonoscope was inserted per rectum and advanced under direct visualization through the colon. At approximately 40 cm, the patient was noted to have diverticulosis. In association with this, there was a tight corner which was difficult to pass. I attempted to place the patient in different positions and applied external pressure; however, I was unable to get past this area. On two or three occasions, I was able to get past it, but then could not advance my scope any further without undue tension. When I started to notice some mucosal bruising at this area, the decision was made to not attempt any further manipulation and advancement. The scope was fully withdrawn then while examining the color, texture, anatomy, and integrity of the colon that I could see. Other than diverticulosis, the remainder of the colon appeared normal. The scope was removed and the procedure terminated. The patient tolerated it well and was stable and transferred to the PACU in stable condition. ENDOSCOPIC DIAGNOSES: 1. Incomplete colonoscopy. 2. Diverticulosis. 3. Grade 4 hemorrhoids. RECOMMENDATIONS: I visited with the patient in the postoperative care area. She has undergone fecal occult blood testing, which has been negative, and as I noted before, her bowel habits have returned to normal. I offered to have her undergo a barium enema, however, she declined this at this point in time. Instead, I will see the patient again in one year to re-examine her and discuss any further screening of her colon at that time. NAKUL JUNIOR /[id number]
== END 2019-09-14 12:10 | disposition home or self-care (01) ==
LOC: MW.SDS 09:22
PROVIDERS: ATTEND Surgery
DX: K57.30 Diverticulosis of large intestine without perforation or abscess without bleeding (principal); K64.3 Fourth degree hemorrhoids; R19.4 Change in bowel habit; K63.89 Other specified diseases of intestine; I10 Essential (primary) hypertension; Z79.899 Other long term (current) drug therapy
CPT/HCPCS: 45330; J2704; J7120